=== PATIENT | male | born 1970 | race Caucasian/White ===

== ENCOUNTER 2022-12-12 16:26 | Emergency (ER) | payer OTHER ==
[2022-12-12] MEDS ORDERED: Take Home: Amoxicillin/Clavulanate K 875-125 MG Tab, 2 Tab Pack PO ONE (16:41)
[2022-12-12] MEDS ORDERED: Take Home: Acetaminophen/Codeine 300 MG/30 MG, 5 Tab Pack PO ONE (16:41)
[2022-12-12 16:42] VITALS: BP 173/89; PULSE 87
== END 2022-12-12 16:57 | disposition home or self-care (01) ==
LOC: VM.ED 16:26 → SUPCPDRO 16:26 → VM.ED 16:57
DX: K04.7 Periapical abscess without sinus (principal); E78.00 Pure hypercholesterolemia, unspecified; I10 Essential (primary) hypertension; K21.9 Gastro-esophageal reflux disease without esophagitis; E11.9 Type 2 diabetes mellitus without complications; E66.9 Obesity, unspecified; F17.210 Nicotine dependence, cigarettes, uncomplicated; Z68.36 Body mass index [BMI] 36.0-36.9, adult; Z79.899 Other long term (current) drug therapy; Z79.82 Long term (current) use of aspirin
CPT/HCPCS: 99282; 99283; A9270-GY